=== PATIENT | female | born 1960 | race Caucasian/White ===

== ENCOUNTER 2018-03-16 08:15 | Day surgery (SDC) | payer OTHER ==
[2018-03-15 13:38] VITALS: BMI 21.1
[2018-03-16 09:49] VITALS: TEMP 97.2
[2018-03-16] MEDS ORDERED: ONDANSETRON 4 MG/2 ML VIAL ONE (10:30)
[2018-03-16] MEDS ORDERED: ONDANSETRON 4 MG/2 ML VIAL IVPB ONE (10:45)
[2018-03-16 11:17] VITALS: BP 108/53
[2018-03-16 11:19] VITALS: PULSE 70
--- NOTE | 2018-03-17 16:31 | PATH ---
Surgical Pathology Report Patient Name: FRANCINE HOLLAND [facility]. Rec. #: [id number] /Age/Gender: 1960 (Age: 58) / F Account: [id number] Location: [facility]-ENDOSCOPY Taken: 03/16/2018 Received: 03/16/2018 Reported: 03/17/2018 Physicians: Buster Daniels M.D. Specimen(s) Received BX CECUM POLYP Clinical History Adenoma surveillance Postoperative diagnosis: Colon polyp Final Diagnosis CECUM, POLYP, POLYPECTOMY: TUBULAR ADENOMA. Electronically Signed Damaris Childs M.D. Gross Description Received in formalin, labeled "polyp from cecum" are 4 estrada, irregular portions of soft tissue ranging from 0.1-0.5 cm. in greatest dimension. The specimens are submitted in toto in one cassette. 03/16/201803/16/2018
== END 2018-03-16 11:17 | disposition home or self-care (01) ==
LOC: JASU-ENDO 08:15
PROVIDERS: ATTEND Internal Medicine Gastroenterology
PROC: 0DBC8ZX Excision of Ileocecal Valve, Via Natural or Artificial Opening Endoscopic, Diagnostic (ICD-10-PCS; principal; 2018-03-16 09:00)
DX: Z12.11 Encounter for screening for malignant neoplasm of colon (principal); Z86.010 Personal history of colon polyps; K63.5 Polyp of colon
CPT/HCPCS: 88305-TC

== ENCOUNTER 2021-06-13 04:52 | Day surgery (SDC) | payer BC, OTHER ==
[2021-06-06 15:49] VITALS: BMI 21.0
[2021-06-13 08:44] VITALS: TEMP 97.7
[2021-06-13 09:05] VITALS: BP 122/73; PULSE 89
== END 2021-06-13 09:17 | disposition home or self-care (01) ==
LOC: JASU-ENDO 04:52
PROVIDERS: ATTEND Internal Medicine Gastroenterology
PROC: 0DBC8ZX Excision of Ileocecal Valve, Via Natural or Artificial Opening Endoscopic, Diagnostic (ICD-10-PCS; principal; 2021-06-13 08:00)
DX: Z12.11 Encounter for screening for malignant neoplasm of colon (principal); D12.6 Benign neoplasm of colon, unspecified; Z86.010 Personal history of colon polyps
CPT/HCPCS: 88305-TC